=== PATIENT | female | born 1945 | race Caucasian/White ===

== ENCOUNTER 2022-03-16 10:45 | Emergency (ER) | payer MEDICARE, MEDICAID ==
[~2022-03-16] VITALS: Ht 157.5 cm; Wt 64.5 kg
[~2022-03-16 10:45] MED LIST: CARV3.122 PO; FLUO40CA PO; GLIP5TAB13 PO; LISI5TAB22 PO; METF-436 PO; ROSU40TA PO
[2022-03-16 12:07] LABS: BASOPHILS # (AUTO) 0.1 X10'3 (0-0.2); BASOPHILS % (AUTO) 0.9 % (0-1); EOSINOPHILS % (AUTO) 0 % (0-6); HEMATOCRIT 40.8 % (35.0-45.0); HEMOGLOBIN 13.5 g/dl (12.0-16.0); LYMPHOCYTES # (AUTO) 1.3 X10'3 (1.1-4.8); LYMPHOCYTES % (AUTO) 21.4 % (21-51); MEAN CORPUSCULAR HEMOGLOBIN 30.2 PG (27.0-31.0); MEAN CORPUSCULAR HGB CONC 32.9 g/dL (33.0-36.5); MEAN CORPUSCULAR VOLUME 91.7 FL (78-98); MONOCYTES # (AUTO) 0.7 X10'3 (0-0.9); MONOCYTES % (AUTO) 11.9 % (2-12); NEUTROPHILS # (AUTO) 4.1 X10'3 (1.8-7.7); NEUTROPHILS % (AUTO) 65.8 % (42-75); PLATELET COUNT 223 X10'3 (140-440); RED BLOOD COUNT 4.45 X10'6 (4.20-5.60); RED CELL DISTRIBUTION WIDTH 14.1 % (11.5-14.5); WHITE BLOOD COUNT 6.3 X10'3 (4.5-11.0)
[2022-03-16 12:30] LABS: ALANINE AMINOTRANSFERASE 25 U/L (12-78); ALBUMIN 2.9 G/DL (3.4-5.0); ALBUMIN/GLOBULIN RATIO 0.6 (1.1-1.5); ALKALINE PHOSPHATASE 85 IU/L (46-116); ANION GAP 8 (8-16); ASPARTATE AMINO TRANSFERASE 36 U/L (10-37); BILIRUBIN,TOTAL 0.2 MG/DL (0.1-1.0); BLOOD UREA NITROGEN 12 MG/DL (7-18); BUN/CREATININE RATIO 15.2 (6.6-38.0); CALCIUM 8.4 MG/DL (8.5-10.1); CHLORIDE 105 MMOL/L (99-107); CREATININE 0.79 MG/DL (0.40-0.90); GLUCOSE 248 MG/DL (70-104); SODIUM 138 MMOL/L (135-145); TOTAL CARBON DIOXIDE 25.1 MMOL/L (24-32); TOTAL PROTEIN 7.5 G/DL (6.4-8.2); eGFR 71 ML/MIN
[2022-03-16 13:18] VITALS: BP 112/67
== END 2022-03-16 14:03 | disposition home or self-care (01) ==
LOC: ER 10:45
DX: S02.2XXA Fracture of nasal bones, initial encounter for closed fracture (principal); E11.649 Type 2 diabetes mellitus with hypoglycemia without coma; R55 Syncope and collapse; I25.10 Atherosclerotic heart disease of native coronary artery without angina pectoris; E78.00 Pure hypercholesterolemia, unspecified; I10 Essential (primary) hypertension; G89.29 Other chronic pain; Z98.890 Other specified postprocedural states; Z88.5 Allergy status to narcotic agent; Z79.899 Other long term (current) drug therapy; Z79.84 Long term (current) use of oral hypoglycemic drugs; W18.39XA Other fall on same level, initial encounter; Y93.89 Activity, other specified; Y92.89 Other specified places as the place of occurrence of the external cause; Y99.8 Other external cause status
CPT/HCPCS: 36415; 70450; 71045; 72125; 80053; 82948; 83880; 84484; 85025; 93005; 99285

== ENCOUNTER 2023-11-24 11:25 | Inpatient (IN) | payer MEDICARE, MEDICAID ==
[2023-11-24] VITALS (10 sets, daily range): BP systolic 88–123; BP diastolic 45–61; PULSE 57–73; RESP 12–19; TEMP 97.4–98.1; O2SAT 92–98
[~2023-11-24] VITALS: Ht 157.5 cm; Wt 70.0 kg
[~2023-11-24 11:25] MED LIST changes: -GLIP5TAB13 PO; +GLIP5TAB23 PO; -LISI5TAB22 PO
[2023-11-24] MEDS ORDERED: pantoprazole 40mg IV 80 MG in normal saline 100ml IV soln 100 ML IV ONE (12:05)
[2023-11-24 12:08] LABS: BASOPHILS # (AUTO) 0.1 X10'3 (0-0.2); BASOPHILS % (AUTO) 0.5 % (0-1); EOSINOPHILS % (AUTO) 0.4 % (0-6); HEMATOCRIT 26.7 % (35.0-45.0); HEMOGLOBIN 8.6 g/dl (12.0-16.0); LYMPHOCYTES # (AUTO) 1.4 X10'3 (1.1-4.8); LYMPHOCYTES % (AUTO) 12.1 % (21-51); MEAN CORPUSCULAR HEMOGLOBIN 29.8 PG (27.0-31.0); MEAN CORPUSCULAR HGB CONC 32.3 g/dL (33.0-36.5); MEAN CORPUSCULAR VOLUME 92.3 FL (78-98); MONOCYTES # (AUTO) 0.9 X10'3 (0-0.9); MONOCYTES % (AUTO) 8.3 % (2-12); NEUTROPHILS # (AUTO) 8.9 X10'3 (1.8-7.7); NEUTROPHILS % (AUTO) 78.7 % (42-75); PLATELET COUNT 298 X10'3 (140-440); RED BLOOD COUNT 2.89 X10'6 (4.20-5.60); RED CELL DISTRIBUTION WIDTH 16.9 % (11.5-14.5); WHITE BLOOD COUNT 11.3 X10'3 (4.5-11.0)
[2023-11-24] MEDS: pantoprazole 40 MG vial IV SCH (12:12)
[2023-11-24] MEDS: pantoprazole 40MG/NS 100ML BAG 100 ML IV SCH (12:22)
[2023-11-24] MEDS: normal saline 1000ML IV soln IV ONE (12:22)
[2023-11-24] MEDS: CefTRIAXone/D5W-Rocephin 1gm 50 ML IV ONE (12:22)
[2023-11-24 12:25] LABS: INR 1.1 INR; PROTHROMBIN TIME 12.1 SECONDS (9.0-12.0)
[2023-11-24 12:34] LABS: ALANINE AMINOTRANSFERASE 17 U/L (12-78); ALBUMIN 2.3 G/DL (3.4-5.0); ALKALINE PHOSPHATASE 58 IU/L (46-116); ANION GAP 15 (8-16); BLOOD UREA NITROGEN 35 MG/DL (7-18); BUN/CREATININE RATIO 46.7 (10.0-20.0); CALCIUM 8.1 MG/DL (8.5-10.1); CHLORIDE 113 MMOL/L (99-107); CREATININE 0.75 MG/DL (0.40-0.90); POTASSIUM 4.8 MMOL/L (3.5-5.1); SODIUM 146 MMOL/L (135-145); TOTAL CARBON DIOXIDE 18.5 MMOL/L (24-32); eCRCL 48 ML/MIN; eGFR 75 ML/MIN
[2023-11-24 12:52] LABS: ALBUMIN/GLOBULIN RATIO 0.5 (1.1-1.5); ASPARTATE AMINO TRANSFERASE 34 U/L (10-37); BILIRUBIN,TOTAL 0.5 MG/DL (0.1-1.0); GLUCOSE 173 MG/DL (70-104); TOTAL PROTEIN 7.1 G/DL (6.4-8.2)
[2023-11-24 13:02] LABS: ALBUMIN 2.3 G/DL (3.4-5.0); ANION GAP 11 (8-16); BLOOD UREA NITROGEN 37 MG/DL (7-18); BUN/CREATININE RATIO 46.8 (10.0-20.0); CALCIUM 8.1 MG/DL (8.5-10.1); CHLORIDE 114 MMOL/L (99-107); CREATININE 0.79 MG/DL (0.40-0.90); GLUCOSE 168 MG/DL (70-104); POTASSIUM 4.8 MMOL/L (3.5-5.1); SODIUM 145 MMOL/L (135-145); TOTAL CARBON DIOXIDE 20.4 MMOL/L (24-32); eCRCL 46 ML/MIN; eGFR 70 ML/MIN
[2023-11-24] MEDS ORDERED: albuterol 2.5 MG/3 ML nebule NEB PRN (13:25)
[2023-11-24] MEDS ORDERED: LIDOcaine Viscous 15ml cup ONE (13:44)
[2023-11-24] MEDS ORDERED: fentaNYL/PF 50MCG/1 ML 2ML syringe ONE (13:47)
[2023-11-24 13:48] LABS: APTT 22 SECONDS (22-32)
[2023-11-24] MEDS ORDERED: MIDAZolam 1 MG/ML 5ML VIAL ONE (13:48)
[2023-11-24] MEDS ORDERED: magnesium 4gm in 100ml NS 100 ML IV PRN (14:05)
[2023-11-24] MEDS ORDERED: magnesium hydroxide 30ml (MOM) UD suspension PO PRN (14:05)
[2023-11-24] MEDS ORDERED: mag hydrox/Alum hydrox/simeth 30ml oral suspension PO PRN (14:05)
[2023-11-24] MEDS ORDERED: potassium Cl 20 mEq SR tablet PO PRN ×2 (14:05)
[2023-11-24] MEDS ORDERED: acetaminophen 325mg tablet PO PRN (14:05)
[2023-11-24] MEDS ORDERED: magnesium 2GM in 50ml NS 50 ML IV PRN (14:05)
[2023-11-24] MEDS ORDERED: ondansetron/PF 4mg/2ml inj IV PRN (14:05)
[2023-11-24] MEDS ORDERED: magnesium Cl slow-release 64mg tablet PO PRN (14:05)
[2023-11-24] MEDS ORDERED: potassium Cl 40MEQ/1/2NS 520ml 520 ML IV PRN (14:05)
[2023-11-24 16:52] LABS: HEMATOCRIT 25.5 % (35.0-45.0); HEMOGLOBIN 8.3 g/dl (12.0-16.0); MEAN CORPUSCULAR HEMOGLOBIN 30.4 PG (27.0-31.0); MEAN CORPUSCULAR HGB CONC 32.7 g/dL (33.0-36.5); MEAN PLATELET VOLUME 8.3 FL (7.4-10.4); PLATELET COUNT 267 X10'3 (140-440); RED BLOOD COUNT 2.74 X10'6 (4.20-5.60); WHITE BLOOD COUNT 10.7 X10'3 (4.5-11.0)
[2023-11-24] MEDS ORDERED: insulin Lispro (HumaLOG) vial - multi-dose SQ SCH (18:40)
[2023-11-24] MEDS ORDERED: dextrose 50%-water 50ml dispensing syringe IV PRN ×2 (18:40)
[2023-11-24] MEDS: ringers solution, lacted 1,000 ML IV SCH (18:40)
[2023-11-24] MEDS: MESSAGE TO PHARMACY PO ONE (18:40)
[2023-11-24] MEDS ORDERED: glucagon, human recombinant 1mg kit SUBCUT PRN (18:40)
[2023-11-24] MEDS ORDERED: DEXTROSE 15 GM of carb/4 tabs (each vial/BOTTLE has 4 tablets) PO PRN ×2 (18:40)
[2023-11-24] MEDS: K and/or MAG REPLACEMENT MC SCH (19:52)
[2023-11-24] MEDS: Melatonin 3mg tablet PO SCH (19:59)
[2023-11-24] MEDS: carVEDilol 3.125mg tablet PO SCH (19:59)
[2023-11-24] MEDS: insulin glargine (Lantus) pen - multi-dose SQ SCH (20:32)
[2023-11-24 21:34] LABS: HEMOGLOBIN 7.4 g/dl (12.0-16.0); MEAN CORPUSCULAR HGB CONC 32.3 g/dL (33.0-36.5); MEAN CORPUSCULAR VOLUME 92.9 FL (78-98); MEAN PLATELET VOLUME 8.3 FL (7.4-10.4); PLATELET COUNT 250 X10'3 (140-440); RED BLOOD COUNT 2.48 X10'6 (4.20-5.60); WHITE BLOOD COUNT 7.4 X10'3 (4.5-11.0)
[2023-11-25] VITALS (17 sets, daily range): BP systolic 94–148; BP diastolic 43–71; PULSE 57–71; RESP 14–21; TEMP 97–98.4; O2SAT 93–98
[2023-11-25 06:38] LABS: INR 1.1 INR; PROTHROMBIN TIME 11.5 SECONDS (9.0-12.0)
[2023-11-25 06:46] LABS: BASOPHILS # (AUTO) 0.1 X10'3 (0-0.2); EOSINOPHILS % (AUTO) 0.8 % (0-6); LYMPHOCYTES # (AUTO) 2.1 X10'3 (1.1-4.8); LYMPHOCYTES % (AUTO) 35.2 % (21-51); MEAN CORPUSCULAR HGB CONC 32.4 g/dL (33.0-36.5); MEAN CORPUSCULAR VOLUME 92.5 FL (78-98); MEAN PLATELET VOLUME 8.2 FL (7.4-10.4); MONOCYTES # (AUTO) 0.6 X10'3 (0-0.9); MONOCYTES % (AUTO) 9.7 % (2-12); NEUTROPHILS # (AUTO) 3.2 X10'3 (1.8-7.7); NEUTROPHILS % (AUTO) 53.3 % (42-75); PLATELET COUNT 222 X10'3 (140-440); RED BLOOD COUNT 2.25 X10'6 (4.20-5.60); RED CELL DISTRIBUTION WIDTH 16.9 % (11.5-14.5)
[2023-11-25 06:55] LABS: HEMATOCRIT 20.8 % (35.0-45.0); HEMOGLOBIN 6.7 g/dl (12.0-16.0)
[2023-11-25 07:06] LABS: APTT 22 SECONDS (22-32)
[2023-11-25 07:26] LABS: ANISOCYTOSIS 1+; HYPOCHROMASIA 2+; PLATELET ESTIMATE NORMAL
[2023-11-25 07:27] LABS: ALANINE AMINOTRANSFERASE 14 U/L (12-78); ALBUMIN 2.1 G/DL (3.4-5.0); ALBUMIN/GLOBULIN RATIO 0.5 (1.1-1.5); ALKALINE PHOSPHATASE 50 IU/L (46-116); ANION GAP 12 (8-16); ASPARTATE AMINO TRANSFERASE 16 U/L (10-37); BILIRUBIN,TOTAL 0.3 MG/DL (0.1-1.0); BLOOD UREA NITROGEN 31 MG/DL (7-18); BUN/CREATININE RATIO 38.3 (10.0-20.0); CALCIUM 7.9 MG/DL (8.5-10.1); CHLORIDE 115 MMOL/L (99-107); CHOL/HDL RATIO 3.1 (0.00-4.99); CHOLESTEROL 112 MG/DL (0-200); CREATININE 0.81 MG/DL (0.40-0.90); HDL CHOLESTEROL 36 MG/DL (35-60); LDL CHOLESTEROL 54 MG/DL (50-100); MAGNESIUM 1.6 MG/DL (1.5-2.4); PHOSPHORUS 4.1 MG/DL (2.3-4.5); POTASSIUM 3.7 MMOL/L (3.5-5.1); SODIUM 147 MMOL/L (135-145); TOTAL CARBON DIOXIDE 19.8 MMOL/L (24-32); TOTAL PROTEIN 6.4 G/DL (6.4-8.2); TRIGLYCERIDES 114 MG/DL (20-135); eCRCL 45 ML/MIN; eGFR 68 ML/MIN
[2023-11-25 07:33] LABS: GLUCOSE 80 MG/DL (70-104)
[2023-11-25] MEDS: atorvastatin 20mg tablet PO SCH (07:50)
[2023-11-25] MEDS: FLUoxetine 20mg capsule PO SCH (07:51)
[2023-11-25 10:12] LABS: HEMOGLOBIN A1C 10.5 % (4.5-6.2)
[2023-11-25 11:46] LABS: HEMATOCRIT 22.7 % (35.0-45.0); HEMOGLOBIN 7.5 g/dl (12.0-16.0); MEAN CORPUSCULAR HEMOGLOBIN 30.5 PG (27.0-31.0); MEAN CORPUSCULAR HGB CONC 33.1 g/dL (33.0-36.5); MEAN CORPUSCULAR VOLUME 92.4 FL (78-98); MEAN PLATELET VOLUME 7.9 FL (7.4-10.4); PLATELET COUNT 219 X10'3 (140-440); RED BLOOD COUNT 2.46 X10'6 (4.20-5.60); RED CELL DISTRIBUTION WIDTH 16.1 % (11.5-14.5); WHITE BLOOD COUNT 6.7 X10'3 (4.5-11.0)
[2023-11-25] MEDS ORDERED: temazepam 15mg capsule PO PRN (11:55)
[2023-11-25] MEDS: dextrose 5%-1/2 normal saline 1,000 ML IV SCH (13:08)
[2023-11-25 17:06] LABS: HEMATOCRIT 29.4 % (35.0-45.0); HEMOGLOBIN 9.8 g/dl (12.0-16.0); MEAN CORPUSCULAR HEMOGLOBIN 30.1 PG (27.0-31.0); MEAN CORPUSCULAR HGB CONC 33.4 g/dL (33.0-36.5); MEAN CORPUSCULAR VOLUME 90.1 FL (78-98); MEAN PLATELET VOLUME 8.5 FL (7.4-10.4); PLATELET COUNT 236 X10'3 (140-440); RED BLOOD COUNT 3.27 X10'6 (4.20-5.60); RED CELL DISTRIBUTION WIDTH 17.8 % (11.5-14.5)
[2023-11-25] MEDS: temazepam 15mg capsule PO PRN (20:08)
[2023-11-26 00:40] LABS: HEMOGLOBIN 8.8 g/dl (12.0-16.0); MEAN CORPUSCULAR HEMOGLOBIN 30.4 PG (27.0-31.0); MEAN CORPUSCULAR HGB CONC 33.9 g/dL (33.0-36.5); MEAN CORPUSCULAR VOLUME 89.7 FL (78-98); PLATELET COUNT 204 X10'3 (140-440); RED CELL DISTRIBUTION WIDTH 17.4 % (11.5-14.5)
[2023-11-26 02:00] VITALS: BP 140/75; PULSE 63; RESP 19; TEMP 97.3; O2SAT 96
[2023-11-26 06:00] VITALS: BP 137/61; PULSE 66; RESP 22; TEMP 96.8; O2SAT 96
[2023-11-26 08:04] LABS: BASOPHILS # (AUTO) 0.1 X10'3 (0-0.2); BASOPHILS % (AUTO) 1.4 % (0-1); EOSINOPHILS # (AUTO) 0.1 X10'3 (0-0.9); EOSINOPHILS % (AUTO) 1.2 % (0-6); HEMATOCRIT 27.6 % (35.0-45.0); HEMOGLOBIN 9.3 g/dl (12.0-16.0); LYMPHOCYTES # (AUTO) 1.8 X10'3 (1.1-4.8); LYMPHOCYTES % (AUTO) 31.8 % (21-51); MEAN CORPUSCULAR HEMOGLOBIN 30.3 PG (27.0-31.0); MEAN CORPUSCULAR HGB CONC 33.7 g/dL (33.0-36.5); MEAN PLATELET VOLUME 8.1 FL (7.4-10.4); MONOCYTES # (AUTO) 0.7 X10'3 (0-0.9); MONOCYTES % (AUTO) 12.2 % (2-12); NEUTROPHILS # (AUTO) 3.1 X10'3 (1.8-7.7); NEUTROPHILS % (AUTO) 53.4 % (42-75); PLATELET COUNT 211 X10'3 (140-440); RED BLOOD COUNT 3.06 X10'6 (4.20-5.60); RED CELL DISTRIBUTION WIDTH 17.7 % (11.5-14.5); WHITE BLOOD COUNT 5.8 X10'3 (4.5-11.0)
[2023-11-26 08:13] LABS: APTT 24 SECONDS (22-32)
[2023-11-26 08:27] LABS: ALANINE AMINOTRANSFERASE 14 U/L (12-78); ALBUMIN 2.3 G/DL (3.4-5.0); ALKALINE PHOSPHATASE 52 IU/L (46-116); ANION GAP 11 (8-16); BLOOD UREA NITROGEN 10 MG/DL (7-18); BUN/CREATININE RATIO 13.9 (10.0-20.0); CALCIUM 8.1 MG/DL (8.5-10.1); CHLORIDE 111 MMOL/L (99-107); CREATININE 0.72 MG/DL (0.40-0.90); MAGNESIUM 1.5 MG/DL (1.5-2.4); POTASSIUM 3.6 MMOL/L (3.5-5.1); SODIUM 142 MMOL/L (135-145); TOTAL CARBON DIOXIDE 19.6 MMOL/L (24-32); eCRCL 50 ML/MIN; eGFR 78 ML/MIN
[2023-11-26 08:28] LABS: ALBUMIN/GLOBULIN RATIO 0.5 (1.1-1.5); ASPARTATE AMINO TRANSFERASE 21 U/L (10-37); BILIRUBIN,TOTAL 0.7 MG/DL (0.1-1.0); GLUCOSE 159 MG/DL (70-104); PHOSPHORUS 3.2 MG/DL (2.3-4.5)
[2023-11-26 11:00] VITALS: BP 138/56; PULSE 67; RESP 15; TEMP 98.3; O2SAT 96
[2023-11-26 12:15] LABS: HEMATOCRIT 27.9 % (35.0-45.0); HEMOGLOBIN 9.3 g/dl (12.0-16.0); MEAN CORPUSCULAR HEMOGLOBIN 29.9 PG (27.0-31.0); MEAN CORPUSCULAR HGB CONC 33.2 g/dL (33.0-36.5); MEAN PLATELET VOLUME 8.1 FL (7.4-10.4); PLATELET COUNT 215 X10'3 (140-440); RED BLOOD COUNT 3.11 X10'6 (4.20-5.60); RED CELL DISTRIBUTION WIDTH 17.7 % (11.5-14.5); WHITE BLOOD COUNT 6.3 X10'3 (4.5-11.0)
[2023-11-26] MEDS ORDERED: PANT-47 PO (12:16)
== END 2023-11-26 14:30 | disposition home health service (06) | DRG 378 ==
LOC: ER 11:25 → ED HOLD 14:04 → PCU 3S 15:38
PROVIDERS: ADMIT Internal Medicine; ATTEND Internal Medicine
PROC: 0DB78ZX Excision of Stomach, Pylorus, Via Natural or Artificial Opening Endoscopic, Diagnostic (ICD-10-PCS; principal; 2023-11-24)
PROC: 30233N1 Transfusion of Nonautologous Red Blood Cells into Peripheral Vein, Percutaneous Approach (ICD-10-PCS; 2023-11-25)
DX: K25.4 Chronic or unspecified gastric ulcer with hemorrhage (principal); D62 Acute posthemorrhagic anemia; E87.0 Hyperosmolality and hypernatremia; E87.20 Acidosis, unspecified; E11.9 Type 2 diabetes mellitus without complications; E86.0 Dehydration; E78.00 Pure hypercholesterolemia, unspecified; I10 Essential (primary) hypertension; E87.8 Other disorders of electrolyte and fluid balance, not elsewhere classified; I25.10 Atherosclerotic heart disease of native coronary artery without angina pectoris; Z88.5 Allergy status to narcotic agent; Z79.899 Other long term (current) drug therapy; Z90.710 Acquired absence of both cervix and uterus
CPT/HCPCS: 36415; 36430; 43239; 71045; 80048; 80053; 80061; 82948; 83036; 83735; 84100; 85008; 85025; 85027; 85610; 85730; 86885; 86900; 86901; 86920; 87081; 93005; 96365; 99152; 99285; A4620; C9113; G0378; J0696; J1815; J2250; J3010; J7030; J7040; J7120; P9016

== ENCOUNTER 2024-12-25 19:39 | Emergency (ER) | payer MEDICARE, MEDICAID ==
[~2024-12-25 19:39] MED LIST changes: +PANT-47 PO
[2024-12-25 19:50] VITALS: BP 170/84; PULSE 69; RESP 17; TEMP 97.8; O2SAT 98
== END 2024-12-25 21:52 | disposition left against medical advice (07) ==
LOC: ER 19:40
DX: E11.649 Type 2 diabetes mellitus with hypoglycemia without coma (principal); Z88.5 Allergy status to narcotic agent; Z53.21 Procedure and treatment not carried out due to patient leaving prior to being seen by health care provider
CPT/HCPCS: 82948

== ENCOUNTER 2025-04-09 12:34 | Outpatient (CLI) | payer MEDICARE, MEDICAID ==
--- NOTE | 2025-04-09 13:35 | RADIOLOGY REPORT ---
EXAM: CT CT LUMBAR SPINE HISTORY: LUMBAR BACK PAIN COMPARISON: CT scan of the abdomen and pelvis dated 12/31/2021. TECHNIQUE: Noncontrast axial CT images of the lumbar spine were performed. Sagittal and coronal refor matted images were obtained. This CT exam was performed using one or more of the following dose reduc tion techniques: Automated exposure control, adjustment of the mA and/or kv according to patient size , or the use of iterative reconstruction techniques. Radiation Dose: CT Dose: CTDI volume is 20.78 mGy. Dose-length product is 597.05 mGy*cm FINDINGS/IMPRESSION: 1. New concavity of the T12 superior endplate which may be due to schmorl's nodes or endplate fractur e. There is also chronic inferior endplate concavity of T12, similar to that seen on the previous CT scan from December 2021. 2. Superior endplate burst fracture of L1 with about 40% loss of height anteriorly, 90% loss of heigh t posteriorly, and 5 mm retropulsion of fragments. This fracture is new versus prior CT scan and may be acute, chronic, or acute on chronic. There is bone demineralization of the posterior midportion o f the vertebral body which may indicate pathologic fracture. Though the patient have a known malignan cy 3. Superior and inferior endplate burst fracture of L2 with 40% loss of height anteriorly ; 20% loss of height posteriorly, minimal retropulsion of fragments. This fracture appears acute to subacute. 4. L3 superior endplate compression fracture, similar to that seen on the previous CT scan from December 2021. 5. Advanced lumbar degenerative disc disease and facet arthropathy with [id number] spinal canal stenosis at L2-L3 and moderate spinal canal stenosis at L4-L5. There is significant neural foramina l stenosis at L2-L3 on the right and L4-L5 bilaterally, which may correspond to lower extremity radic ular symptoms in the right L2 and bilateral L4 nerve root distributions.
--- NOTE | 2025-04-09 15:45 | RADIOLOGY REPORT ---
PROCEDURE: MR MRI LUMBAR SPINE INDICATION: LUMBAR BACK PAIN Exam Date: 04/09/2025 02:16 PM COMPARISON: CT CT LUMBAR SPINE on DOS: 04/09/25, CT CERVICAL SPINE on DOS: 03/16/22 TECHNIQUE: MRI lumbar spine without intravenous contrast. FINDINGS: Levoscoliosis. Acute/ subacute compression fractures of the L1 and L2 vertebral bodies. [id number] rate loss of vertebral body height. Mild retropulsion of fracture fragments into the canal at the T1 2-L1 and L2-3 levels. The visualized distal spinal cord and conus medullaris are within normal limit s. The conus medullaris appears to terminate within normal limits. The visualized retroperitoneal a nd paraspinal soft tissues are unremarkable. The following axial levels are detailed below: T12-L1: There is a moderate circumferential disc bulge complicated by facet arthropathy associated w ith mild to moderate bilateral neuroforaminal stenosis. Central canal measures 8 mm. L1-L2: There is a moderate circumferential disc bulge complicated by facet arthropathy associated w ith mild to moderate bilateral neuroforaminal stenosis. No significant central canal stenosis. L2-L3: There is a severe circumferential disc bulge complicated by facet arthropathy narrowing the central canal to 8 mm with associated moderate to severe bilateral neuroforaminal stenosis. L3-L4: There is a moderate circumferential disc bulge complicated by facet arthropathy associated w ith mild to moderate bilateral neuroforaminal stenosis. No significant central canal stenosis. L4-L5: There is a severe circumferential disc bulge complicated by facet arthropathy narrowing the central canal to 8 mm with associated moderate to severe bilateral neuroforaminal stenosis. L5-S1: There is a moderate circumferential disc bulge complicated by facet arthropathy associated wi th mild to moderate left neuroforaminal stenosis. No significant central canal stenosis. IMPRESSION: 1. Acute/ subacute compression fractures of the L1 and L2 vertebral bodies. Mild retropulsion of frac ture fragments into the canal contributing to moderate central canal stenosis at T12-L1 and L2-3. Cl inical correlation and continued follow-up is recommended. 2. 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 Moderate central canal stenosis L4 -Neural foraminal stenosis as above. HS:Y
== END 2025-04-09 23:59 | disposition home or self-care (01) ==
LOC: RAD 12:34
PROVIDERS: ATTEND Student in an Organized Health Care Education/Training Program
DX: S32.011A Stable burst fracture of first lumbar vertebra, initial encounter for closed fracture (principal); S32.021A Stable burst fracture of second lumbar vertebra, initial encounter for closed fracture; S32.030A Wedge compression fracture of third lumbar vertebra, initial encounter for closed fracture; M54.50 Low back pain, unspecified; M51.369 Other intervertebral disc degeneration, lumbar region without mention of lumbar back pain or lower extremity pain; M48.061 Spinal stenosis, lumbar region without neurogenic claudication; X58.XXXA Exposure to other specified factors, initial encounter; Y93.89 Activity, other specified; Y92.89 Other specified places as the place of occurrence of the external cause; Y99.8 Other external cause status
CPT/HCPCS: 72131; 72148